=== PATIENT | female | born 1980 | race Caucasian/White ===

== ENCOUNTER 2021-08-10 20:33 | Emergency (ER) | payer SELFPAY ==
[~2021-08-10] VITALS: Ht 157.5 cm; Wt 65.8 kg
[2021-08-10 20:40] VITALS: BP 129/89
== END 2021-08-10 23:21 | disposition left against medical advice (07) ==
LOC: EDBD 20:33 → ER 20:33
DX: M79.601 Pain in right arm (principal); R20.2 Paresthesia of skin; Z53.21 Procedure and treatment not carried out due to patient leaving prior to being seen by health care provider